=== PATIENT | female | born 1980 | race Caucasian/White ===

== ENCOUNTER → 2018-07-12 | Outpatient (REF) | payer OTHER | LOC: M SFHCLERA 09:52 | DX: J03.90 Acute tonsillitis, unspecified (principal) ==

== ENCOUNTER → 2018-11-26 | Outpatient (REF) | payer OTHER | LOC: M SFHCLERA 11:50 | PROVIDERS: ATTEND Nurse Practitioner Family | DX: J02.9 Acute pharyngitis, unspecified (principal) ==

== ENCOUNTER → 2021-02-18 | Outpatient (CLI) | payer OTHER ==
--- NOTE | 2021-02-18 08:49 | REP ---
INDICATION: RIGHT SIDED THORACIC BACK PAIN COMPARISON: None. TECHNIQUE: AP, lateral, and swimmers views. FINDINGS: Alignment and kyphosis is maintained. Vertebral bodies intact. No acute fracture / compression injury or subluxation. No degenerative changes. Paravertebral soft tissues are normal. IMPRESSION: Normal thoracic spine series. <Electronically signed by Camden Glez > 02/18/21 0158
== END ==
LOC: M WUC 08:15
PROVIDERS: ATTEND Nurse Practitioner Family
DX: M54.6 Pain in thoracic spine (principal)